=== PATIENT | female | born 1960 | race Caucasian/White ===

== ENCOUNTER 2016-03-01 13:56 | Observation (INO) | payer OTHER ==
[~2016-03-01] VITALS: Ht 167.6 cm; Wt 67.8 kg
[~2016-03-01 13:56] MED LIST: ATEN50TA PO; CHOL10002 PO; MULT-1018 PO; POTA20TA7 PO; TAMO20TA4 PO; TRIA1TAB3 PO
[2016-03-01 13:59] VITALS: BP 133/85; PULSE 81; RESP 16; O2SAT 100
[2016-03-01] MEDS ORDERED: 0.9% Sodium Chloride 1,000 ML IV ONE (14:09)
[2016-03-01 14:56] LABS: BASOPHILS % (AUTO) 0.3 % (0-3); EOSINOPHILS % (AUTO) 0.6 % (0-5); MONOCYTES % (AUTO) 8.7 % (4-12); Mean Corpuscular Hemoglobin 34.6 pg (27.0-35.0); Mean Corpuscular Volume 103.4 fL (81-100); Platelet Count 104 bil/L (150-400)
--- NOTE | 2016-03-01 15:10 | ED.REPORT ---
HPI-GI Bleed Date of Service Mar 01, 2016 ED Provider: Henry Cantu MD Patient is a 55 year old female who presents to the ED after she developed black tarry stools today, with cramping epigastric pain for the past 4 days. Patient had 4x black bowel movements today, with the last one on arrival to the ED. The patient states that her pain is especially severe at night, to the point that it wakes her up from sleep. During the day her pain as a dull ache. She reports associated nausea and decreased PO intake. She denies a history of gastric ulcers, GI bleeds, prior abdominal surgeries, or taking blood thinning medications. Patient reports taking Ibuprofen after onset of symptoms, which only worsened her pain. Patient reports having a colonoscopy several years ago, which showed diverticulosis. The patient also has a history of hemorrhoids but denies noting bright red blood today. Patient reports feeling chilled but denies dizziness or feeling light headed. Nursing Notes Stated Complaint: STOMACH PAIN/BLACK STOOL Chief Complaint: Female Abdominal Pain Nursing Notes Reviewed: Yes Allergies: Coded Allergies: No Known Allergies (Unverified Allergy, Unknown, 03/01/16) Scheduled Atenolol (Atenolol) 25 Mg Tablet 25 MG PO DAILY Cholecalciferol (Vitamin D3) (Vitamin D3) 2,000 Unit Tablet 2,000 UNIT PO DAILY Multivitamin (Multi Vitamin Daily) 1 Each Tablet 1 EACH PO DAILY Potassium Chloride (Potassium Chloride) 20 Meq Tab.er.prt 10 MEQ PO DAILY Tamoxifen Citrate (Tamoxifen Citrate) 20 Mg Tablet 20 MG PO DAILY Triamterene/HCTZ 37.5-25 mg (Triamterene/HCTZ 37.5-25 mg) 1 Each Tablet 1 EACH PO DAILY General Time Seen by Provider: 15:11 Chief Complaint Chief Complaint: Abdominal pain, Stool tarry black Hx Obtained From: Patient Arrived By: Walk-in Onset Occurred: 9 - 12 hours ago Symptom Duration: Intermittent Location: : Epigastric Quality: Cramping, Painful Severity: Current: Mild Severity: Maximum: Severe Recent Healthcare: No recent doctor visit, No recent hospitalization Similar Sx Previous: No Past Medical History Past Medical History diverticulosis hemorrhoids right ductal cell carcinoma, s/p lumpectomy Past Surgical History prior colonoscopy right breast post lumpectomy Smoking History Unknown if Ever Smoker Social History Other Social History: Good social support, Local resident Ambulatory Status Independent Review of Systems Review of Systems Note: + decreased PO intake Constitutional: Reports: Chills, Denies: Fever GI: Reports: Abdominal pain, Bloody/tarry stool, Nausea, Denies: Rectal pain, Vomiting Neurologic: Denies: Change LOC, Dizziness, Lightheaded Complete sys rev & neg: except as marked. Physical Exam Initial Vital Signs Vital Signs (First) Date Time Temp Pulse Resp B/P Pulse Ox O2 Delivery O2 Flow Rate FiO2 03/01/16 13:59 37 81 16 133/85 100 Room Air Initial VS: Reviewed Head / Eyes: Atraumatic, Normocephalic, PERRL Neck: Supple, Full range of motion Extremities: Vascular intact, Neuro intact Skin: Warm, Dry, No cyanosis Neurologic: Alert, Oriented, Nonfocal Psychiatric: Mood/affect normal, Behavior normal, Normal thought content General/Constitutional: Awake, Alert, No acute distress Respiratory / Chest: Breath sounds NL, Breath sounds = bilat, No respiratory distress, No rales, No rhonchi, No wheezing Cardiovascular: Heart rate NL, Regular rhythm, Heart sounds NL, No gallop, No murmurs, No rubs, Cap refill not delayed, Peripheral circulation NL, Pulses = bilaterally skin is warm and well perfused Abdomen: Soft, No guarding, No rebound Tenderness/Guarding/Rebound: Positive: Tender epigastric, Negative: Rigid to palpation Rectum / Perineum: No fissures Rectal for Blood: Positive: Blood - occult heme + (stool sample), Melena present Rectum / Perineum Abnl: Positive: Hemorrhoid external, Negative: Hemorrhoid thrombosed no bright red blood ENT: Airway patent Mouth: Positive: Mucous membranes dry (slight) Lower Extremity / Pelvis / MS: No swelling (no calf swelling), Non-tender (no calf tenderness) Interpretation & Diagnostics Lab Results Interpretation Result Diagram: 03/01/16 1443 03/01/16 1443 Test 03/01/16 14:43 03/01/16 14:57 White Blood Count 6.3th/mm3 (3.8-10.1) Red Blood Count 3.50mil/mm3 (3.90-5.20) Hemoglobin 12.1g/dL (12.0-15.6) Hematocrit 36.2% (35.0-46.0) Mean Corpuscular Volume 103.4fL (81-100) Mean Corpuscular Hemoglobin 34.6pg (27.0-35.0) Mean Corpuscular Hemoglobin Concent 33.4% (32.0-37.0) Red Cell Distribution Width 12.8% (12.3-15.4) Platelet Count 104bil/L (150-400) Neutrophils (%) (Auto) 48.0% (40-74) Lymphocytes (%) (Auto) 42.2% (14-46) Monocytes (%) (Auto) 8.7% (4-12) Eosinophils (%) (Auto) 0.6% (0-5) Basophils (%) (Auto) 0.3% (0-3) Prothrombin Time 11.3sec (8.1-12.5) Prothromb Time International Ratio 1.05ratio Sodium Level 138mEq/L (134-144) Potassium Level 3.7mEq/L (3.5-5.2) Chloride Level 97mEq/L (97-108) Carbon Dioxide Level 24mmol/L (18-29) Blood Urea Nitrogen 27mg/dL (6-24) Creatinine 0.53mg/dL (0.57-1.00) Estimat Glomerular Filtration Rate 170mL/min (>59) Glucose Level 109mg/dL (60-99) Calcium Level 8.9mg/dL (8.5-10.1) Total Bilirubin 0.8mg/dL (0.0-1.2) Aspartate Amino Transf (AST/SGOT) 60U/L (0-50) Alanine Aminotransferase (ALT/SGPT) 34U/L (0-32) Alkaline Phosphatase 75U/L (25-150) Total Protein 6.8g/dL (6.4-8.4) Albumin 4.0g/dL (3.4-5.0) Hold Urine Received (Received) Re-Eval/Medical Decision Med Decision/Clinical Course The patient is a 55-year-old female who presents to the emergency department after developing melanotic stools earlier today. Upon arrival the patient is afebrile and he went amply stable with pain about the epigastrium but no guarding rigidity or rebound. IV access was obtained laboratory studies were sent and blood was sent for type and screen. Given concern for upper GI bleed the patient was given an IV Pantoprazole bolus and infusion. IV fluids were administered. Laboratory studies were notable as below: no leukocytosis Hematocrit 36.2 BUN of 27, Creatinine of 0.52 mild elevated transaminases no sign electrolyte abnormalities, normal coags Rectal examination revealed melanotic stool without any actively bleeding hemorrhoids or anal fissures. There are no findings suggestive of acute surgical abdominal process. I do not feel that imaging studies are indicated. The patient remained hemodynamically stable without any immediately concerning drop in hematocrit. Given the patient's history of epigastric pain I suspect the source is related to peptic ulcer disease. Gastroenterology was consulted and they will scope the patient tomorrow morning. The patient is been admitted to the hospitalist service for further management and close hemodynamic monitoring. The patient has been made NPO. Patient was transferred in stable condition. Source of Hx: Old records Re-Evaluation/Progress : Time of Eval: 15:23 Patient Status: Condition improved Re-Evaluation/Progress Note: Informed the patient that her was blood in her stool. She will need to be admitted to the hospital for further workup. Patient understands and agrees with this plan. All questions were addressed. Consultation #1: Referral / Consult Name: Jamie Ramachandran MD Consulted With: On-call physician (GI) Call Returned at: 15:29 Volunteer Fire Fighter: Will see patient, Agrees with eval, Agrees with plan Note: Spoke with Dr. Ramachandran GI, about the patient's case. He agrees to act as consult. Will scope her tomorrow. Consultation #2: Referral / Consult Name: Je Thorntno MD Consulted With: Hospitalist Call Returned at: 16:02 Volunteer Fire Fighter: Will see patient, Agrees with eval, Agrees with plan, Accepts admit Note: Spoke with Dr. Thornton, hospitalist, who agrees to accept admit. Counseled Regarding: Diagnosis, Lab results, Need for admission Discharge & Departure Impression: Primary Impression: Upper GI bleed Additional Impressions: Epigastric pain Melena Disposition: ADMITTED TO HOSPITAL Discharge Condition All VS Reviewed: Yes Condition: Stable Referrals: Kevin Pfeiffer MD (PCP) Crit Care Except Billable Proc Time Spent: 105-134 minutes Services Performed: Patient management by me, Time spent at bedside, Reviewing test results, Discussing patient care, Documentation in record, Time with fam/ surrogate Scribe Attestation Portions of this note were transcribed by Luma Harrison. I, Dr. Cantu personally performed the history, physical exam and medical decision-making; I reviewed and confirmed the accuracy of the information in the transcribed note. Signed by: Lluvia Pike, 03/01/2016 1827 copies to: Kevin Pfeiffer MD,Henry Benavides MD Mar 01, 2016 15:10 Luma Harrison Mar 01, 2016 15:24
[2016-03-01 15:11] LABS: INR 1.05 ratio
[2016-03-01] MEDS ORDERED: Pantoprazole 4 mg/mL 10 mL Inj IVPUSH ONE (15:20)
[2016-03-01] MEDS ORDERED: Pantoprazole Inj 80 MG, Pharmacy To Mix 1 EA in 0.9% Sodium Chloride 80 ML IV ONE ×2 (15:20)
[2016-03-01] MEDS ORDERED: CHOL200025 PO (15:49)
[2016-03-01] MEDS ORDERED: ATEN25TA PO (15:50)
[2016-03-01] MEDS ORDERED: POTA20TA16 PO (15:50)
[2016-03-01 15:53] VITALS: BP 115/62; PULSE 80; RESP 18; O2SAT 99
--- NOTE | 2016-03-01 16:00 | PCM.HPMED ---
Subjective Date of Service Mar 01, 2016 Primary Provider: Admitting Physician: Je Thornton MD Primary Care Physician: Rebecca Whyte Attending Physician: Je Thornton MD Chief Complaint: Cramping abdominal pain with melena History of Present Illness: Patient is a 55 year old female who presents to the ED after she developed black tarry stools today, with cramping epigastric pain for the past 4 days. Patient had 4x black bowel today, with the last one on arrival to the ED. The patient states that her pain is especially severe at night, to the point that it wakes her up from sleep. During the day her pain is a dull ache.. She reports associated nausea and decreased PO intake. She denies a history of gastric ulcers, GI bleeds, prior abdominal surgeries, or taking blood thinning medications. Patient reports taking Ibuprofen after onset of symptoms, which only worsened her pain. Patient reports having a colonoscopy several years ago, which showed diverticulosis. The patient also has a history of hemorrhoids but denies noting bright red blood today. Patient reports feeling chilled but denies dizziness or feeling light headed. Review of Systems: Gen.: No fevers chills weight loss weight gain Eyes: no visual disturbances or blurring vision HEENT: No nose/throat drainage, no pain in ears or throat, no hearing loss Lymph: No lymph nodes noted Cardiac: No chest pain, orthopnea, PND, palpitations , pedal edema or dyspnea on exertion Pulmonary: no cough, wheezing or bringing up of sputum GI: No anorexia nausea vomiting blood or black in the stool : no dysuria hematuria urinary frequency or decrease in urine output Musculoskeletal: Joint swelling no joint pain no new muscle aches or back pain Neuro: No syncope, seizures no loss of consciousness no new focal weakness, numbness or tingling Psychiatric: New new anxiety insomnia or depression Endocrine: No new heat or cold intolerances polyuria or polydipsia Hematology: No lymphadenopathy or easy bleeding or bruising noted skin: No new rashes, stasis dermatitis Allergies Coded Allergies: No Known Allergies (Unverified Allergy, Unknown, 03/01/16) Home Medications Scheduled Atenolol (Atenolol) 25 Mg Tablet 25 MG PO DAILY Cholecalciferol (Vitamin D3) (Vitamin D3) 2,000 Unit Tablet 2,000 UNIT PO DAILY Multivitamin (Multi Vitamin Daily) 1 Each Tablet 1 EACH PO DAILY Potassium Chloride (Potassium Chloride) 20 Meq Tab.er.prt 10 MEQ PO DAILY Tamoxifen Citrate (Tamoxifen Citrate) 20 Mg Tablet 20 MG PO DAILY Triamterene/HCTZ 37.5-25 mg (Triamterene/HCTZ 37.5-25 mg) 1 Each Tablet 1 EACH PO DAILY PMH 1. Hypertension. 2. Impaired fasting glucose levels. 3. History of previous shingles. DCIS S/p lumpectomy left Varicose veins FAMILY HISTORY: Malignancy breast cancer in paternal and maternal grandmother and pancreatic cancer in maternal grandfather. SOCIAL HISTORY: Patient never smoked. She drinks 2-3 glasses of wine each evening with dinner and has for 30 years. 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 She is . 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 She comes alone today. The patient lives in [place]. Social History Hx Alcohol Use: Yes Hx Substance Use: No Smoking Status: Never Smoker Exam Vital Signs Vital Sign - Last Date Time Temp Pulse Resp B/P Pulse Ox O2 Delivery O2 Flow Rate FiO2 03/01/16 13:59 37 81 16 133/85 100 Room Air Exam Gen.- A+ O 3 no apparent distress.well nopurished female in bed Eyes- open conjunctiva clear, pupils equal nonicteric ENT- ears normal, nose normal Mouth- moist, dentition intact Neck- supple/trach midline CVS- RRR no murmur or gallop Lungs CTA, no accessory muscle usage no ronch/wheezes GI- NABS/NT soft, no HSM, guarding, rebound Musc- moving 4 no obvious deformity Neuro- cranial nerves II through XII intact to gross examination, nonfocal Skin- warm and dry Psych- pleasant and appropriate, Lab and Diagnostics Labs AST 60, ALT 34, urine being held in lab, INR 1.05 Result Diagram: 03/01/16 1443 03/01/16 1443 X-Rays, CTs and MRIs No imaging 12-lead ECG No EKG Assessment & Plan 55yo w/ hx epigastric pain, regular drinker (white wine), pain x5days, took nsaid once and found pain worse. Melanotic/loose stool, hx diverticulosis Melena- presumed UGIB, GI reportedly consulted in ED, ppi drip, clears no reds then NPO @ midnight for expected EGD. h/h q4 pt not presently anemic Epigastric pain- differential includes gerd/gastritis, pt on ppi, trial GI cocktail thrombocytopenia- ? etoh marrow supression vs HSM? f/u cbc in am mild transaminits- c/w etoh may need discussion, ativan ordered for anxiety (not using full CIWA) elv bun/cr ration- c/w GI bleed HTN- home atenolol on parameters Proph- DVT-SCDs, heparin contraindicated, GI on ppi drip Dispo- from home full code Je Thornton MD Mar 01, 2016 16:00
[2016-03-01 16:54] VITALS: BP 120/68; PULSE 83; RESP 20; O2SAT 98
[2016-03-01] MEDS ORDERED: Polyethylene Glycol (PEG) 17 Gm Powder PO PRN (17:40)
[2016-03-01] MEDS ORDERED: Ondansetron 2 mg/mL 2 mL Inj IVPUSH PRN (17:40)
[2016-03-01] MEDS ORDERED: HYDROcodone-APAP 5-325 mg Tablet PO PRN (17:40)
[2016-03-01] MEDS ORDERED: Alum-Mag Hydrox-Simeth 30 mL Suspension PO PRN (17:40)
[2016-03-01] MEDS ORDERED: LORazepam 1 mg Tablet PO PRN (19:10)
[2016-03-01] MEDS ORDERED: Donnatal-Lido-Mylant 1:1:1 15 mL Syringe PO PRN (19:10)
--- NOTE | 2016-03-01 19:29 | NUR ---
Arrived to [facility]: Patient arrived to [facility] from the ER at 1700. Patient is alert and oriented x3 and stated that she is not having pain. Patient was instructed to save her stools for examination by nurse and so the stool can be checked for blood. Patient was oriented to her room call light and care givers.
[2016-03-01] MEDS: 0.9% Sodium Chloride 1,000 ML IV SCH (19:59)
[2016-03-01] MEDS: Sodium Chloride LOK Flush 10 mL Syringe IVFLUSH SCH (20:05)
[2016-03-01 21:12] VITALS: BP 97/54; PULSE 79; RESP 20; O2SAT 97
[2016-03-02] VITALS (9 sets, daily range): BP systolic 106–120; BP diastolic 58–76; PULSE 64–75; RESP 16–20; O2SAT 95–99
[2016-03-02] MEDS: Pantoprazole 8 mg/Hr Infusion IV SCH ×4 (02:44→15:07)
[2016-03-02] MEDS: 0.9% Sodium Chloride 1,000 ML IV SCH ×2 (05:30→17:05)
[2016-03-02] MEDS ORDERED: Pantoprazole 4 mg/mL 10 mL Inj IVPUSH SCH (07:30)
[2016-03-02] MEDS: Sodium Chloride LOK Flush 10 mL Syringe IVFLUSH SCH ×3 (07:53→23:15)
[2016-03-02] MEDS ORDERED: Potassium Chloride 20 mEq SR Tablet PO SCH (08:30)
--- NOTE | 2016-03-02 08:46 | CONS ---
[address] [address] CONSULTATION REPORT PATIENT: JOHNNIE KNAPP : 1960 MR#: [id number] ADMIT: 03/01/2016 JOB ID: [id number] DATE OF SERVICE: 03/02/2016 REASON FOR CONSULTATION: Melena. HISTORY OF PRESENT ILLNESS: This is a pleasant 55-year-old female with a history of hypertension, breast cancer in the past, inferior fasting glucose levels, history of previous shingles, status post lumpectomy in the left breast, varicose veins presents for consultation of melena for the past 1 day. The patient states 3 days prior to her melenic episodes she had epigastric pain that started 3 days ago, and she had melena for 1 day. The patient states she had 9 episodes of melanotic stool. The patient denies any chronic NSAID use in the past. Pt drinks 1 bottle wine/day x 10 years. The patient also denies eating foods rich in iron, taken iron supplements or Pepto-Bismol. Patient never had an EGD, but had a colonoscopy 5 years ago which showed diverticulosis. I have no records. The patient denies bright red blood per rectum, nausea, vomiting, hematemesis, current abdominal pain, change in bowel habits, or unintentional weight loss. The patient denies family history of colon cancer, inflammatory bowel disease, or celiac disease. PAST MEDICAL HISTORY: As stated above. PAST SURGICAL HISTORY: As stated above. MEDICATIONS: Atenolol, vitamin D3, multivitamin, potassium chloride, tamoxifen, and . ALLERGIES: No known drug allergies. SOCIAL HISTORY: She denies smoking, alcohol, or drugs. FAMILY HISTORY: Negative for colon cancer, inflammatory bowel disease, or celiac disease. REVIEW OF SYSTEMS: The patient denies headache, blurred vision, nausea, vomiting, chest pain, shortness of breath, abdominal pain, skin rash, or joint pain. PHYSICAL EXAMINATION: Vital signs upon presentation: Temperature is 36.8, pulse 66, blood pressure 110/72, respiratory rate 18, satting 99% on room air. General: In no acute distress. Head: No scars. Eyes: Anicteric. Throat: Supple. Lungs: Clear to auscultation bilaterally. Cardiovascular; Regular rhythm and rate. Abdomen is soft, nondistended, nontender. Normoactive bowel sounds. Extremities: No cyanosis, clubbing or edema. LABORATORIES: White count 6.3, hemoglobin 12.1, hematocrit 36, MCV 103, platelet count of 104. Chemistry shows sodium 138, potassium 3.7, chloride 97, bicarb 24, BUN 27, creatinine 0.53. Glucose 109. Calcium 8.9. Total bili 0.8. AST 16, ALT 34, alk phos 75. Total protein 6.8, albumin 4.0. PT 11.3, INR 1.0. ASSESSMENT AND PLAN: This is a 55-year-old, female, history of breast cancer status post lumpectomy, previous shingles, impaired glucose test, hypertension presents here with melena x1 day. The differential diagnosis includes peptic ulcer disease versus gastritis versus duodenitis versus esophagitis.Pt drinks 1 bottle wine/day x 10 years. RECOMMENDATIONS: 1. Nothing by mouth except for medications. 2. Protonix drip. 3. EGD with MAC preformed today. MTDD
--- NOTE | 2016-03-02 08:52 | NUR ---
Social Work: Screening Data: Pt is a 55 y/o female admitted for upper GI bleed. Pt's PCP is JOE Ramirez, pt's insurance is [facility]. Pt readmit score is 1. EMR reviewed, no d/c planning needs anticipated at this time. WEB CONTENT PRODUCER will continue to follow if needs arise. Assessment: Pt who is independent at baseline. Plan: Pt will d/c home via POV when medically stable. No d/c planning needs anticipated at this time. WEB CONTENT PRODUCER will continue to follow if needs arise. GILBERTO Pritchard
[2016-03-02] MEDS ORDERED: Lactated Ringer's 1,000 ML IV ONE ×2 (13:28→13:33)
--- NOTE | 2016-03-02 13:33 | PCM.HPANE ---
Patient Data Surgeon Admitting Provider:Je Thornton MD Attending Provider:Je Thornton MD Primary Care Physician:Rebecca Whyte Other Provider: Reason for Visit Upper Gi Bleed Ht/WT & BMI Height (Feet): 5 Height (Inches): 6.00 Weight (Kilograms): 67.800 Body Mass Index 24.00 Allergies Coded Allergies: No Known Allergies (Unverified Allergy, Unknown, 03/01/16) Past Anesthesia History Anesthesia History: Denies:: Anesthesia Reactions, Malignant Hyperthermia Diabetes History Hx Diabetes?: No MRSA MRSA: No Medications Hypertension Medication: No Home Meds Incl Beta Gina: Yes Reported Medications Potassium Chloride 20 Meq Tab.er.prt10 Meq PO DAILY 03/01/16 Atenolol 25 Mg [id number] Mg PO DAILY 03/01/16 Cholecalciferol (Vitamin D3) (Vitamin D3)2,000 Unit Tablet2,000 Unit PO DAILY 03/01/16 Tamoxifen Citrate 20 Mg [id number] Mg PO DAILY 10/14/13 Multivitamin (Multi Vitamin Daily)1 Each Tablet1 Each PO DAILY 09/09/13 Triamterene/HCTZ 37.5-25 mg 1 Each Tablet1 Each PO DAILY 0 09/09/13 Discontinued Reported Medications Cholecalciferol (Vitamin D3)1,000 Unit Tablet2,000 Unit PO DAILY 09/09/13 Potassium Chloride ER (Klor-Con M20)20 Meq Tab.er.prt20 Meq PO 5 dys a week 30 Days Ref 0 09/09/13 Atenolol 50 Mg Aqzesq03 Mg PO DAILY Ref 0 09/09/13 History History of ENT Problems?: No HEENT History: Denies:: Abnormal Airway Cataracts Difficult Intubation Dysphagia Glaucoma Sinus Problem Hx of Heart Problems?: Yes Cardiovascular History: Positive for:: Hypertension Rheumatic Fever Denies:: Chest Pain Congestive Heart Failure Heart Murmur Pacemaker Thrombophlebitis Hx of Respiratory Problem?: No Respiratory History: Denies:: Tuberculosis Hx Neurologic Problems?: No Neurological History: Denies:: Alzheimer's Disease CVA Dementia Dizziness Headaches Seizures Hx of GI Problems?: Yes Gastrointestinal History: Positive for:: Diverticulitis (h/o diverticulosis) Rectal Bleeding (h/o hemorrhoids) Denies:: Cirrhosis Gastroesphageal Reflux Heartburn Hepatitis Hx of Problems?: No Genitourinary History: Denies:: HX of Hemodialysis Kidney Stones Urinary Tract Infection Female Hx: Positive for:: Problems with Breasts? (RIGHT BREAST CA s/p lumpectomy) Denies:: Currently Endometriosis Pelvic Inflammatory Hx Musculoskeletal Problems?: No Hx of Psycho/Social Problems?: No Psycho Social History: Denies:: Anxiety Bipolar Disorder Hx Depression Hx Surgeries?: Yes (rt breast lumpectomy) Hx Any Other Health Problems?: Yes Other History: Positive for:: Cancer (rt.ductal cell carcinoma) Denies:: Endocrine Disease Hospitalization Thyroid Disease History Blood Transfusions: Positive for:: Accept Blood Products? Denies:: Blood Transfusions Hx Diabetes: No Hx Alcohol Use: Yes (BOTTLE A DAY)Hx Substance Use: No Smoking Status: Never Smoker Have You Smoked inLast 12 mo: No Stop/Bang Treated for Sleep Apnea?: No Do You Have a CPAP Machine?: No S-Snoring: Do You Snore Loudly: No T-Tired: feel tired, fatigued: No O-Obsered: Observed not breath: No P-Blood Pressure: treated: Yes B- Body Mass Index > 35 kg/m2: No A- Age over 50: Yes N- Neck Large Circumference: No G- Gender Male: No REED Total Score: 2 REED Risk Assessment: Low Risk, <3 Yes Risk Assessment Category Category 1A: Patient has history of documented sleep apnea, and HAS NOT received any narcotic, sedative or anesthesia administration during this stay. Category 1B: Patient has history of documented sleep apnea, and HAS received any narcotic , sedative or anesthesia administration during this stay Category 2: Patient has SUSPECTED Obstructive Sleep Apnea, and HAS received any narcotic , sedative or anesthesia administration during this stay. Category 3: Patient has SUSPECTED Obstructive Sleep Apnea and HAS NOT received narcotic, sedative or anesthesia administration during this stay. Category 4: Outpatient in Procedural Areas with known sleep apnea or who screen positive for High Risk via the STOP/BANG questionnaire. Exam Exam Vital Signs Vital Signs Date Time Temp Pulse Resp B/P Pulse Ox O2 Delivery O2 Flow Rate FiO2 03/02/16 10:20 36.8 65 18 108/68 97 Room Air 03/02/16 09:25 66 03/02/16 06:00 36.8 66 18 110/72 99 Room Air General Appearance: Alert, Oriented X3, Cooperative, No Acute Distress HEENT/AIRWAY: MP 2 Lungs: Clear to Auscultation, Normal Air Movement Heart: Exam Unremarkable, Regular Rate/Rhythm, No Murmurs/Rubs/Gallops Meds/Labs/Diagnostics Admission Meds Current Medications Sodium Chloride (Normal Saline) 1,000 ml @ 0 mls/hr Q0M ONCE IV Last administered on 03/01/16 15:03; Start 03/01/16 at 14:09; Stop 03/01/16 at 14:11; Status DC Pantoprazole 80 mg 80 mg STAT ONCE IVPUSH Last administered on 03/01/16 15:38 ; Start 03/01/16 at 15:20; Stop 03/01/16 at 15:21; Status DC Pantoprazole 80 mg/Miscellaneous 1 ea/Sodium Chloride 100 ml @ 10 mls/hr ONCE ONCE IV Last administered on 03/01/16 16:08; Start 03/01/16 at 15:20; Stop at 01:19; Status DC Sodium Chloride (Normal Saline) 1,000 ml @ 100 mls/hr Q10H IV Last administered on 03/02/16 05:30; Start 03/01/16 at 17:36 Atenolol (Tenormin) 25 mg DAILY PO Last administered on 03/02/16 07:52; Start 03/02/16 at 08:30 Potassium Chloride (K-Dur) 10 meq DAILY PO Last administered on 03/02/16 07:58 ; Start 03/02/16 at 08:30 Cholecalciferol (Vitamin D3) 2,000 unit DAILY PO Last administered on 03/02/16 07:52; Start 03/02/16 at 08:30 Multivitamins/ Minerals Therapeutic (Thera Vitamins w/Mineral) 1 tablet DAILY PO Last administered on 03/02/16 07:52; Start 03/02/16 at 08:30 Tamoxifen Citrate (Nolvadex) 20 mg DAILY PO Last administered on 03/02/16 07:51 ; Start 03/02/16 at 08:30 Triamterene/HCTZ 1 capsule 1 capsule DAILY PO Last administered on 03/02/16 07: 52; Start 03/02/16 at 08:30 Pantoprazole/ Sodium Chloride (Protonix Inj/ Normal Saline) 100 ml @ 10 mls/hr Q10H IV Last administered on 03/02/16t 02:44; Start 03/02/16 at 01:55 Labs Test 03/01/16 14:43 03/01/16 14:57 03/02/16 12:30 White Blood Count 6.3th/mm3 (3.8-10.1) Red Blood Count 3.50mil/mm3 (3.90-5.20) Mean Corpuscular Volume 103.4fL (81-100) Mean Corpuscular Hemoglobin 34.6pg (27.0-35.0) Mean Corpuscular Hemoglobin Concent 33.4% (32.0-37.0) Red Cell Distribution Width 12.8% (12.3-15.4) Platelet Count 104bil/L (150-400) Neutrophils (%) (Auto) 48.0% (40-74) Lymphocytes (%) (Auto) 42.2% (14-46) Monocytes (%) (Auto) 8.7% (4-12) Eosinophils (%) (Auto) 0.6% (0-5) Basophils (%) (Auto) 0.3% (0-3) Prothrombin Time 11.3sec (8.1-12.5) Prothromb Time International Ratio 1.05ratio Sodium Level 138mEq/L (134-144) Potassium Level 3.7mEq/L (3.5-5.2) Chloride Level 97mEq/L (97-108) Carbon Dioxide Level 24mmol/L (18-29) Blood Urea Nitrogen 27mg/dL (6-24) Creatinine 0.53mg/dL (0.57-1.00) Estimat Glomerular Filtration Rate 170mL/min (>59) Glucose Level 109mg/dL (60-99) Calcium Level 8.9mg/dL (8.5-10.1) Total Bilirubin 0.8mg/dL (0.0-1.2) Aspartate Amino Transf (AST/SGOT) 60U/L (0-50) Alanine Aminotransferase (ALT/SGPT) 34U/L (0-32) Alkaline Phosphatase 75U/L (25-150) Total Protein 6.8g/dL (6.4-8.4) Albumin 4.0g/dL (3.4-5.0) Hold Urine Received (Received) Hemoglobin 10.6g/dL (12.0-15.6) Hematocrit 32.2% (35.0-46.0) Plan Impression Patient chart reviewed, patient interviewed and anesthestic plan with risks, benefits, and alternatives discussed, and informed consent obtained. NPO Status: >8 hours forl solids ASA Physical Status: ASA3 Severe Disease (SEVERE alchoholism) Anesthetic Plan: MAC Bene/Risks/Altern/Consents: Yes HP Complete Prior to Induction: Yes Tony Trejo MD Mar 02, 2016 13:33
[2016-03-02] MEDS ORDERED: Lactated Ringer's 1,000 ML IV SCH (13:34)
[2016-03-02] MEDS ORDERED: Ondansetron 2 mg/mL 2 mL Inj IVPUSH PRN (13:35)
[2016-03-02] MEDS ORDERED: MetoCLOpramide 5 mg/mL 2 mL Inj IVPUSH PRN (13:35)
--- NOTE | 2016-03-02 14:22 | ENDO ---
[address] [address] ENDOSCOPY PROCEDURE PATIENT: JOHNNIE KNAPP : 1960 MR#: [id number] ADMIT: 03/01/2016 JOB ID: [id number] DATE OF SERVICE: 03/02/2016 TYPE OF OPERATION: Esophagogastroduodenoscopy with biopsy. PREOPERATIVE DIAGNOSIS: Melena. POSTOPERATIVE DIAGNOSES: 1. Mild nonerosive gastritis. 2. There were two antral ulcers seen in distal stomach each measuring 8 mm in diameter, clean based, nonbleeding, without stigmata of recent bleed, status post biopsy. ANESTHESIA: Monitored anesthesia care. COMPLICATIONS: None. BLOOD LOSS: Minimal. DESCRIPTION OF PROCEDURE: After risks and benefits explained to the patient, informed consent was obtained. After anesthesia administered, upper endoscope was then inserted into the mouth, intubating into the esophagus, stomach and second portion of duodenum. Mucosa carefully examined. After the procedure was done, the scope withdrawn and procedure terminated. FINDINGS: Upon inspection of the esophagus, the esophagus was normal without masses, ulcers, lesions. Z-line located 40 cm from incisors. Upon entering the stomach, there were two antral ulcers seen in the distal stomach each measuring 8 mm in size, located at the 3 o'clock and 9 o'clock positions, clean based, nonbleeding, without stigmata of bleed. There was also mild nonerosive gastritis. Retroflexion was normal. Duodenal bulb, first and second portions normal. Biopsies taken at the antral ulcer and body and antrum of stomach. IMPRESSIONS: 1. Mild nonerosive gastritis. 2. Two antral ulcers seen at the 3 o'clock and 9 o'clock positions. Each measuring 8 mm in diameter, clean based, nonbleeding, without stigmata of bleeding, status post biopsy. RECOMMENDATIONS: 1. Stop Protonix drip. 2. Start clear liquid diet. 3. Protonix 40 mg by mouth twice a day. 4. Carafate 1 g by mouth 4 times a day. 5. Repeat upper endoscopy as an outpatient with anesthesia in two months to document healing of the ulcers. 6. Okay to discharge home today.
[2016-03-02] MEDS ORDERED: Ketamine 10 mg/mL 20 mL Inj ONE (15:48)
--- NOTE | 2016-03-02 15:57 | PCM.PNMED ---
Subjective Date of Service Mar 02, 2016 Subjective Patient denies any nausea or vomiting. She reports some mild abdominal cramping. Pt denies any fevers, chills, fatigue. Pt reports that she drinks a bottle of wine nightly, and states that her last drink was sunday. Pt denies any history of withdrawal symptoms, withdrawal seizures, or tremors. Exam Vital Signs Vital Sign - Last Date Time Temp Pulse Resp B/P Pulse Ox O2 Delivery O2 Flow Rate FiO2 03/02/16 06:00 36.8 66 18 110/72 99 Room Air Intake and Output 03/01/16 03/01/16 03/02/16 Cumulative From/Thru 15:00 23:00 07:00 03/01/16 13:59 - 03/02/16 06:49 Intake Total 1000 ml 1264 ml 2264 ml Balance 1000 ml 1264 ml 2264 ml Intake Oral 200 ml 200 ml IV Total 1000 ml 1064 ml 2064 ml # Voids 4 4 # Bowel Movements 4 4 Exam General: No acute distress, well-developed, well-nourished, appropriately interactive HEENT: Normocephalic, atraumatic. Anicteric sclerae, moist conjunctivae. Oropharynx with moist mucosa. Neck: Supple with full range of motion. No lymphadenopathy Cardiovascular: Regular rate and rhythm with no murmurs, rubs, or gallops appreciated Pulmonary: Clear to auscultation bilaterally with no crackles, wheezes, or rhonchi. Normal respiratory effort with no use of accessory muscles. Abdomen: Bowel tones present. Soft, nontender, nondistended. Extremities: No clubbing, cyanosis, edema, appreciated. Skin: Normal temperature, turgor, and texture; no rash, ulcers, or subcutaneous nodules appreciated. Psychiatric: Normal mood and affect. Alert and oriented to person, place, and time. IVs and Medications Medications Reviewed: Medications were reviewed in detail Lab and Diagnostics Result Diagram: 03/02/16 0615 03/01/16 1443 X-Rays, CTs and MRIs No imaging 12-lead ECG No EKG Assessment & Plan 55yo female patient with history of hypertension, DCIS and heavy alcohol use presented with complaint of melena and some abdominal pain for the past 2 days. Acute episode of melena, present on admission, ongoing -GI consulted, we appreciate their input -Protonix drip -NPO until procedure -H/H serial -EGD today Transaminitis, chronicity unknown, present on admission, ongoing -Likely secondary to alcohol use given 2:1 ratio -Continue to monitor Alcohol use, present on admission, ongoing -Pt reports drinking 1 bottle of wine nightly -Last drink was sunday night -Monitor for withdrawal, and if needed start CIWA protocol -Not currently on CIWA Hypertension -Continue home meds after EGD Proph- DVT-SCDs Dispo- depending on gi and egd findings, likely tomorrow VTE Mechanical Devices: Intermittant Pneumatic CD Resuscitation Status: CPR: Attempt Resuscitation Attending Statement The patient was seen and examined together with Dr. Alberto on 03/02/2016 and I agree with the history, exam and plan as outlined in the note above. Alexa Alberto DO Mar 02, 2016 08:21 Capo Newell MD Mar 03, 2016 10:12
--- NOTE | 2016-03-02 17:47 | NUR ---
Chemical Dependency Assessment Efren Baker 03/02/2016 Current Circumstances: Pt is a 55 year old female who was admitted for abdominal pain and melena. Pt has a history of ETOH use and CD assessment was requested by MD. Hx of Substance Use: Pt reported that she has been drinking approximately one bottle of wine daily for the last ten years. Hx of Treatment: Pt reported no previous CD treatment. Hx of Withdrawal Symptoms. Pt reported no history of withdrawal symptoms. Family Hx: Pt reported a family history of ETOH abuse on her father's side. Hx of Sobriety and supports: Pt indicated that she was sober for several years when her children were small. Pt's was with her for this interview and indicated that Pt had a very supportive family that would be available to help in any way needed. Pt confirmed this as well. Pt's Perception of Use: Pt reported that she did not think that her drinking was a problem until the MD asked her about it. Pt explained that she is a creature of habit and the bottle of wine is just part of her daily routine. Pt indicated that she would either stop drinking or reduce the amount that she consumed if MD recommended that she do so. Pt reported that she did not want to keep drinking if it was the cause of her current digestive issues. Suicide Risk Assessment: Pt has very few risk factors and a high number of protective factors. Pt denied SI, HI and A/V H. Pt reported no desire to harm herself or others and indicated that she enjoys her life and only wants to be healthy. Cristiane Angeles, CALENDER MACHINE OPERATOR, AAC
[2016-03-02] MEDS: Sucralfate 1,000 mg Tablet PO SCH (22:09)
[2016-03-02] MEDS: Pantoprazole 40 mg ER24 Tablet PO SCH (23:14)
[2016-03-03 01:26] VITALS: BP 107/67; PULSE 66; RESP 18; O2SAT 98
[2016-03-03 04:51] VITALS: PULSE 64
--- NOTE | 2016-03-03 06:14 | NUR ---
Uneventful night. Patient denies n/v/d. reports stool normal per her. no s/s of bleeding. no s/s of withdrawal. vitals stable. will continue to monitor.
[2016-03-03] MEDS: Pantoprazole 40 mg ER24 Tablet PO SCH (07:13)
[2016-03-03] MEDS: Sucralfate 1,000 mg Tablet PO SCH ×2 (07:13→11:37)
[2016-03-03 07:19] LABS: BASOPHILS % (AUTO) 1.2 % (0-3); EOSINOPHILS % (AUTO) 2.2 % (0-5); MONOCYTES % (AUTO) 10.7 % (4-12); Mean Corpuscular Hemoglobin 36.7 pg (27.0-35.0); Mean Corpuscular Volume 117.7 fL (81-100); Platelet Count 101 bil/L (150-400)
[2016-03-03 08:00] VITALS: PULSE 76
[2016-03-03] MEDS ORDERED: PANT40TA3 PO (08:42)
[2016-03-03] MEDS ORDERED: SUCR1TAB30 PO (09:04)
[2016-03-03 09:24] VITALS: BP 101/68; PULSE 79; RESP 18; O2SAT 98
[2016-03-03] MEDS: Sodium Chloride LOK Flush 10 mL Syringe IVFLUSH SCH (09:31)
--- NOTE | 2016-03-03 10:49 | PCM.PNSURG ---
Subjective Date of Service: Mar 03, 2016 Date of Service: Mar 03, 2016 Visit Information: Subjective: hb stable 10.8. no overt signs gi bleed. s/p egd yesterday Postop General: No Complaints Objective Vital Sign- Last 8 Hours Date Time Temp Pulse Resp B/P Pulse Ox O2 Delivery O2 Flow Rate FiO2 03/03/16 09:24 36.8 79 18 101/68 98 Room Air 03/03/16 04:51 64 Intake and Output- Last 8 Hour 03/03/16 Cumulative From/Thru 07:00 03/01/16 13:59 - 03/03/16 05:44 Intake Total 300 ml 2964 ml Output Total 700 ml Balance 300 ml 2264 ml Intake Oral 300 ml 700 ml IV Total 2264 ml Output Urine Total 700 ml # Voids 2 6 # Bowel Movements 0 6 General: Oriented X3 Neck: Supple Lungs: Clear to Auscultation Heart: Exam Unremarkable Abdomen: Benign, Soft, Non-tender, Non-distended, Normoactive bowel tones Extremities: Distal Pulses Palpable Result Diagram: 03/03/1630 03/03/1630 Assessment & Plan Impression 55-year-old, female, history of breast cancer status post lumpectomy, previous shingles, impaired glucose test, hypertension presents here with melena x1 day. s/p egd 03/03/16- IMPRESSIONS: 1. Mild nonerosive gastritis. 2. Two antral ulcers seen at the 3 o'clock and 9 o'clock positions. Each measuring 8 mm in diameter, clean based, nonbleeding, without stigmata of bleeding, status post biopsy. Recs: 1. Protonix 40mg bid 2. advance diet as tolerated 3. Carafate 1 g by mouth 4 times a day. 4. Repeat upper endoscopy as an outpatient with anesthesia in two months to document healing of the ulcers. 5. Okay to discharge home today. 6. etoh cessation, avoid nsaids will sign off Problems: Resuscitation Status: CPR: Attempt Resuscitation Jamie Ramachandran MD Mar 03, 2016 10:49
--- NOTE | 2016-03-03 11:59 | PCM.DIMED ---
Alexa Alberto DO 03/03/16 0852: Discharge Instructions Date of Service Mar 03, 2016 Dates of Hospitalization Mar 01, 2016 at 15:47 Discharge Diagnosis Discharge Diagnosis Acute episode of melena Mild nonerosive gastritis. Two antral ulcers Transaminitis Alcohol use Hypertension Medication Instructions You need to start taking Protonix 40mg twice a day. You also need to start taking Carafate 1gm daily. You may continue with your other home medications. Avoid NSAIDs( aleve, advil etc). Protonix 40 mg by mouth twice a day. Test Results You had an EGD here in the hospital which showed you had 2 ulcers. You will need to have a follow up EGD in 2 months. Diet No restrictions, Other (stop alcohol use) Activity No restrictions Call your provider Fever or Chills, Shortness of breath, Bleeding, Chest pain, Vomitting, Excessive diarrhea Patient Instructions You need to start taking Protonix 40mg twice a day. You also need to start taking Carafate 1gm daily. You may continue with your other home medications. Avoid NSAIDs( aleve, advil etc). Protonix 40 mg by mouth twice a day. You will need a repeat upper endoscopy as an outpatient with anesthesia in two months. I strongly recommend that you stop drinking alcohol. You need to follow up with your PCP regarding this hospitalization. Follow-up Provider: Rebecca Whyte Follow-up with PCP in: 1 week Provider: Jamie Ramachandran MD Follow-up in: Other (2 months for EGD) Capo Newell MD 03/04/16 0931: Alexa Alberto DO Mar 03, 2016 08:52 Capo Newell MD Mar 04, 2016 09:31
--- NOTE | 2016-03-03 12:43 | NUR ---
Discharge Pt discharge home with friend via private vehicle. Pt verbalized understanding of discharge and Rx instructions. Personal belongings accounted for and left with pt. Pt A/O x 4, happy and appreciative of care.
--- NOTE | 2016-03-03 23:23 | PCM.DC.MED ---
Discharge Summary Date of Service Mar 03, 2016 Dates of Hospitalization Date of Hospital Admission Mar 01, 2016 at 15:47 Date of Discharge: Mar 03, 2016 Providers: Admitting Physician: Je Thornton MD Primary Care Physician: Rebecca Whyte Attending Physician: Je Thornton MD Diagnosis at Time of Discharge Diagnosis at Time of Discharge Acute episode of melena Mild nonerosive gastritis. Two antral ulcers Transaminitis Alcohol use Hypertension Consultations GI Procedures Invasive Procedures DATE OF SERVICE: 03/02/2016 TYPE OF OPERATION: Esophagogastroduodenoscopy with biopsy. PREOPERATIVE DIAGNOSIS: Melena. POSTOPERATIVE DIAGNOSES: 1. Mild nonerosive gastritis. 2. There were two antral ulcers seen in distal stomach each measuring 8 mm in diameter, clean based, nonbleeding, without stigmata of recent bleed, status post biopsy. ANESTHESIA: Monitored anesthesia care. COMPLICATIONS: None. BLOOD LOSS: Minimal. DESCRIPTION OF PROCEDURE: After risks and benefits explained to the patient, informed consent was obtained. After anesthesia administered, upper endoscope was then inserted into the mouth, intubating into the esophagus, stomach and second portion of duodenum. Mucosa carefully examined. After the procedure was done, the scope withdrawn and procedure terminated. FINDINGS: Upon inspection of the esophagus, the esophagus was normal without masses, ulcers, lesions. Z-line located 40 cm from incisors. Upon entering the stomach, there were two antral ulcers seen in the distal stomach each measuring 8 mm in size, located at the 3 o'clock and 9 o'clock positions, clean based, nonbleeding, without stigmata of bleed. There was also mild nonerosive gastritis. Retroflexion was normal. Duodenal bulb, first and second portions normal. Biopsies taken at the antral ulcer and body and antrum of stomach. IMPRESSIONS: 1. Mild nonerosive gastritis. 2. Two antral ulcers seen at the 3 o'clock and 9 o'clock positions. Each measuring 8 mm in diameter, clean based, nonbleeding, without stigmata of bleeding, status post biopsy. Brief History Per Dr Ramachandran's HPI "This is a pleasant 55-year-old female with a history of hypertension , breast cancer in the past, inferior fasting glucose levels, history of previous shingles, status post lumpectomy in the left breast, varicose veins presents for consultation of melena for the past 1 day. The patient states 3 days prior to her melenic episodes she had epigastric pain that started 3 days ago, and she had melena for 1 day. The patient states she had 9 episodes of melanotic stool. The patient denies any chronic NSAID use in the past. Pt drinks 1 bottle wine/day x 10 years. The patient also denies eating foods rich in iron, taken iron supplements or Pepto-Bismol. Patient never had an EGD, but had a colonoscopy 5 years ago which showed diverticulosis. I have no records. The patient denies bright red blood per rectum, nausea, vomiting, hematemesis, current abdominal pain, change in bowel habits, or unintentional weight loss. The patient denies family history of colon cancer, inflammatory bowel disease, or celiac disease." Hospital Course 55yo female patient with history of hypertension, DCIS and heavy alcohol use presented with complaint of melena and some abdominal pain for 2 days.Pt was admitted, evaluated by GI and underwent EGD. EGD demonstrated mild non erosive gastritis and 2 antral ulcers. Pt was placed on PPI treatment and given education about ulcers. Pt was advised that she would need a repeat EGD in 2 months. Acute episode of melena -Discharged home on Protonix 40mg BID -EGD showing nonerosive gastritis and 2 antral ulcers -Pt advised to stop drinking Nonerosive gastritis and two antral ulcers, found on EGD -Pt discharged on Carafate 1gm daily and Protonix 40mg BID -Repeat EGD in 2 months -Avoid NSAIDs -Pt advised to stop drinking Transaminitis, chronicity unknown -Likely secondary to alcohol use given 2:1 ratio -Recommend outpatient evaluation -Pt advised to stop drinking Alcohol use, -Pt reports drinking 1 bottle of wine nightly -Pt did not demonstrate any withdrawal symptoms. -Recommend follow up with PCP regarding cessation of alcohol Hypertension -Continue home meds Exam Vital Signs (Last) Date Time Temp Pulse Resp B/P Pulse Ox O2 Delivery O2 Flow Rate FiO2 03/03/16 09:24 36.8 79 18 101/68 98 Room Air Exam General: No acute distress, well-developed, well-nourished, appropriately interactive HEENT: Normocephalic, atraumatic. Anicteric sclerae, moist conjunctivae. Oropharynx with moist mucosa. Neck: Supple with full range of motion. No lymphadenopathy Cardiovascular: Regular rate and rhythm with no murmurs, rubs, or gallops appreciated Pulmonary: Clear to auscultation bilaterally with no crackles, wheezes, or rhonchi. Normal respiratory effort with no use of accessory muscles. Abdomen: Bowel tones present. Soft, nontender, nondistended. Extremities: No clubbing, cyanosis, edema, appreciated. Skin: Normal temperature, turgor, and texture; no rash, ulcers, or subcutaneous nodules appreciated. Psychiatric: Normal mood and affect. Alert and oriented to person, place, and time. Test 03/01/16 14:43 03/01/16 14:57 03/03/16 06:30 Prothrombin Time 11.3sec (8.1-12.5) Prothromb Time International Ratio 1.05ratio Hold Urine Received (Received) White Blood Count 4.0th/mm3 (3.8-10.1) Red Blood Count 2.94mil/mm3 (3.90-5.20) Hemoglobin 10.8g/dL (12.0-15.6) Hematocrit 34.6% (35.0-46.0) Mean Corpuscular Volume 117.7fL (81-100) Mean Corpuscular Hemoglobin 36.7pg (27.0-35.0) Mean Corpuscular Hemoglobin Concent 31.2% (32.0-37.0) Red Cell Distribution Width 13.4% (12.3-15.4) Platelet Count 101bil/L (150-400) Neutrophils (%) (Auto) 60.0% (40-74) Lymphocytes (%) (Auto) 25.6% (14-46) Monocytes (%) (Auto) 10.7% (4-12) Eosinophils (%) (Auto) 2.2% (0-5) Basophils (%) (Auto) 1.2% (0-3) Sodium Level 140mEq/L (134-144) Potassium Level 4.6mEq/L (3.5-5.2) Chloride Level 102mEq/L (97-108) Carbon Dioxide Level 20mmol/L (18-29) Blood Urea Nitrogen 17mg/dL (6-24) Creatinine 0.53mg/dL (0.57-1.00) Estimat Glomerular Filtration Rate 170mL/min (>59) Glucose Level 88mg/dL (60-99) Calcium Level 8.6mg/dL (8.5-10.1) Total Bilirubin 0.9mg/dL (0.0-1.2) Aspartate Amino Transf (AST/SGOT) 94U/L (0-50) Alanine Aminotransferase (ALT/SGPT) 32U/L (0-32) Alkaline Phosphatase 62U/L (25-150) Total Protein 5.9g/dL (6.4-8.4) Albumin 3.3g/dL (3.4-5.0) Discharge Medications Discharge Medications Atenolol (Atenolol) 25 Mg Tablet 25 MG PO DAILY (Reported) Cholecalciferol (Vitamin D3) (Vitamin D3) 2,000 Unit Tablet 2,000 UNIT PO DAILY (Reported) Multivitamin (Multi Vitamin Daily) 1 Each Tablet 1 EACH PO DAILY (Reported) Pantoprazole DR (Pantoprazole DR) 40 Mg Tablet.dr 40 MG PO BIDAC Prescribed by: SARA OZUNA DO Potassium Chloride (Potassium Chloride) 20 Meq Tab.er.prt 10 MEQ PO DAILY ( Reported) Sucralfate (Carafate) 1 Gm Tablet 1,000 MG PO QID Prescribed by: SARA OZUNA DO Tamoxifen Citrate (Tamoxifen Citrate) 20 Mg Tablet 20 MG PO DAILY (Reported) Triamterene/HCTZ 37.5-25 mg (Triamterene/HCTZ 37.5-25 mg) 1 Each Tablet 1 EACH PO DAILY (Reported) Additional med instructions You need to start taking Protonix 40mg twice a day. You also need to start taking Carafate 1gm daily. You may continue with your other home medications. Avoid NSAIDs( aleve, advil etc). Protonix 40 mg by mouth twice a day. Followup Plan Disposition: home with family Discharge Diet: No restrictions, Other (stop alcohol use) Discharge Activity: No restrictions Patient Instructions You need to start taking Protonix 40mg twice a day. You also need to start taking Carafate 1gm daily. You may continue with your other home medications. Avoid NSAIDs( aleve, advil etc). Protonix 40 mg by mouth twice a day. You will need a repeat upper endoscopy as an outpatient with anesthesia in two months. I strongly recommend that you stop drinking alcohol. You need to follow up with your PCP regarding this hospitalization. Follow-up Provider: Rebecca Whyte Follow-up with PCP in: 1 week Provider: Jamie Ramachandran MD Follow-up in: Other (2 months for EGD) Time spent 30 minutes Attending Statement The patient was seen and examined together with Dr. Ozuna on 03/03/2016 and I agree with the history, exam and plan as outlined in the note above. copies to: Rebecca Whyte Tara L DO Mar 03, 2016 23:23 Capo Newell MD Mar 04, 2016 09:32
--- NOTE | 2016-03-06 15:19 | PATH ---
SURGICAL PATHOLOGY Attending Physician:Jamie Ramachandran MD CASE STATUS: Signed Out PATIENT NAME: JOHNNIE KNAPP PID: [id number] : 1960 DATE COLLECTED:03/02/2016 19:47 SPECIMEN: 1: Stomach, Antrum, Biopsy 2: Gastric, Biopsy 3: Gastric, Biopsy CLINICAL HISTORY: 1). ANTRUM BIOPSY 2). GASTRIC BODY BIOPSY 3). ULCER BIOPSY FINAL DIAGNOSIS: 1.GASTRIC ANTRUM, BIOPSY: GASTRIC ANTRUM WITH MILD CHRONIC GASTRITIS. Negative for Helicobacter organisms. Negative for intestinal metaplasia. No evidence of dysplasia or malignancy. 2.GASTRIC BODY, BIOPSY: GASTRIC CORPUS WITH MILD CHRONIC GASTRITIS. Negative for Helicobacter organisms. Negative for intestinal metaplasia. No evidence of dysplasia or malignancy. 3.GASTRIC ULCER, BIOPSY: GASTRIC ANTRUM WITH MILD CHRONIC ACTIVE GASTRITIS. Negative for Helicobacter organisms. Negative for intestinal metaplasia. No evidence of dysplasia or malignancy. ICD10 code K29.70 GROSS DESCRIPTION: The specimen is received in three formalin filled containers labeled with the patient's name. 1). The specimen is sublabeled "antrum" and consists of 2 portions of tissue which aggregate to 0.2 x 0.2 x 0.1 CM. The specimen is entirely submitted in cassette 1A. 2). The specimen is sublabeled "gastric body" and consists of 3 portions of tissue which aggregate to 0.5 x 0.3 x 0.2 CM. The specimen is entirely submitted in cassette 2A. 3). The specimen is sublabeled "ulcer" and consists of a 0.7 x 0.3 x 0.2 CM portion of tissue which is entirely submitted in cassette 3A. 03/02/2016 [facility] MICRO DESCRIPTION: 3. The lamina propria of the gastric antrum is expanded by modest numbers of acute and chronic inflammatory cells. An immunostain for Helicobacter organisms is done because of the acute inflammation and is negative. This test was developed and its performance characteristics determined by [facility]. It has not been cleared or approved by the [place]. [place]. Food and Drug Administration. The FDA has determined that such clearance or approval is not necessary. This test is used for clinical purposes. It should not be regarded as investigational or for research. ICD-9 CODES: CPT CODES: 1: 33783 2: 78544 3: 34984, 87890 Electronically Signed Out Neeraj Pearce MD [facility] [address], [place] [address] Technical component performed at [facility], [facility] [address], [place], [address]
== END 2016-03-03 12:43 | disposition home or self-care (01) ==
LOC: SED 13:56 → MPC 15:47
PROVIDERS: ADMIT Hospitalist; ATTEND Hospitalist
DX: K92.1 Melena (principal); K29.50 Unspecified chronic gastritis without bleeding; K25.9 Gastric ulcer, unspecified as acute or chronic, without hemorrhage or perforation; R74.0 Nonspecific elevation of levels of transaminase and lactic acid dehydrogenase [LDH]; Z72.89 Other problems related to lifestyle; I10 Essential (primary) hypertension; D05.10 Intraductal carcinoma in situ of unspecified breast; Z79.810 Long term (current) use of selective estrogen receptor modulators (SERMs)
CPT/HCPCS: 36415; 43239; 80053; 82274; 85014; 85018; 85025; 85610; 86850; J2250; J7030; J7120